=== PATIENT | female | born 1935 | race Caucasian/White ===

== ENCOUNTER → 2019-06-29 | Outpatient (CLI) | payer MEDICARE, OTHER ==
[~2019-06-29] MED LIST: ASPIR 8181 MG PO; CLONAZEPAM 0.50.5 M1 PO; DETROL LA2 MG PO; FARXIGA10 MG PO; FOLIC ACID1 MG PO; GLYCOTROL CAPS1 EACH PO; IRON325 PO; JENTADUETO 2.51 EAC2 PO; LEVEMIR100 UNIT/1 SQ; LEVOTHYROXINE 0.1 MG PO; LIPITOR10 MG PO; LISINOPRIL10 MG PO; OSTERA TABLET1 EAC1 PO; PAXIL10 MG PO
== END ==
LOC: M.MRI 11:03
DX: E11.69 Type 2 diabetes mellitus with other specified complication (principal); E03.9 Hypothyroidism, unspecified; I10 Essential (primary) hypertension; M19.91 Primary osteoarthritis, unspecified site; F41.1 Generalized anxiety disorder; F32.1 Major depressive disorder, single episode, moderate; Z79.4 Long term (current) use of insulin; Z90.710 Acquired absence of both cervix and uterus; Z79.899 Other long term (current) drug therapy; Z79.82 Long term (current) use of aspirin

== ENCOUNTER 2019-11-28 10:07 | Inpatient (IN) | payer OTHER ==
[~2019-11-28] VITALS: Ht 162.6 cm; Wt 54.9 kg
[~2019-11-28 10:07] MED LIST changes: -LEVOTHYROXINE 0.1 MG PO; +SYNTHROID100 MC1 PO
[2019-11-28 10:10] VITALS: BP 154/66
[2019-11-28] MEDS ORDERED: LANTUS SUBQ (10:21)
[2019-11-28] MEDS ORDERED: INVOKANA300 MG PO (10:21)
[2019-11-28 10:29] LABS: ABSOLUTE BASOPHILS 0.1 thou/uL (0.0-0.2); ABSOLUTE EOSINOPHILS 0.1 thou/uL (0.0-0.7); ABSOLUTE LYMPHOCYTES 1.6 thou/uL (0.8-5.3); ABSOLUTE MONOCYTES 0.5 thou/uL (0.0-1.2); EOSINOPHILS 1.9 %; HEMATOCRIT 37.7 % (37.0-47.0); HEMOGLOBIN 12.7 gm/dL (12.0-15.0); LYMPHOCYTES 25.2 %; MCH 30.7 pg (26.0-34.0); MCHC 33.7 g/dL (28.0-37.0); MCV 91.3 fL (80.0-100.0); MONOCYTES 8.1 %; MPV 8.3 fl. (7.2-11.1); NUCLEATED RBCS 0 /100WBC; PLATELET COUNT* 204 thou/uL (150-400); POLYS 63.8 %; RBC 4.13 mil/uL (4.20-5.00); RDW-CV 13.5 % (10.5-14.5); WBC 6.3 thou/uL (4.0-11.0)
[2019-11-28 10:39] LABS: APTT 24.3 Seconds (25.0-31.3); CALCIUM 9.1 mg/dL (8.5-10.1); POTASSIUM 4.3 mmol/L (3.5-5.1); PROTIME 10.2 Seconds (9.20-11.50)
[2019-11-28 10:43] LABS: ALBUMIN 3.4 g/dL (3.4-5.0); TOTAL BILIRUBIN 0.2 mg/dL (<0.1-1.0); TOTAL PROTEIN 6.5 g/dL (6.4-8.2)
[2019-11-28 12:16] LABS: URINE BILIRUBIN NEGATIVE (Negative); URINE BLOOD NEGATIVE (Negative); URINE CLARITY CLEAR; URINE COLOR YELLOW; URINE GLUCOSE-RANDOM 3+ (Negative); URINE KETONES NEGATIVE (Negative); URINE LEUKOCYTES-REFLEX NEGATIVE (Negative); URINE NITRITE-REFLEX NEGATIVE (Negative); URINE PROTEIN NEGATIVE (Negative); URINE UROBILINOGEN 0.2 E.U./dl (0.2-1.0)
[2019-11-28 12:40] VITALS: BP 144/54
[2019-11-28 13:01] VITALS: BP 158/65
[2019-11-28 13:17] VITALS: BP 158/65
--- NOTE | 2019-11-28 14:40 | EKG ---
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[place] : 1935 Requested By: Alistair Granados Order Number: [id number] MD: Ralph Maldonado Measurements Intervals [place] Rate: 68 P: 46 [place]: 139 QRS: -29 QRSD: 94 T: 12 QT: 398 QTc: 424 Interpretive Statements Sinus rhythm Probable left atrial enlargement Borderline left axis deviation RSR' in V1 or V2, probably normal variant Compared to ECG 04/07/2016 07:37:16 RSR' in V1 or V2 now present Electronically Signed On 11-28-2019 14:39:15 SUPERVISOR FILTRATION by Ralph Maldonado [email or web address] <ELECTRONICALLY SIGNED> By: Ralph Maldonado MD, FAC 11/28/19 1439 1028 1028 Ralph Maldonado MD, [facility] /EPI
[2019-11-28 18:32] VITALS: BP 146/59
[2019-11-28 20:14] VITALS: BP 120/63
[2019-11-29] VITALS (7 sets, daily range): BP systolic 92–133; BP diastolic 38–63
[2019-11-29 03:50] LABS: ABSOLUTE LYMPHOCYTES 0.7 thou/uL (0.8-5.3); ABSOLUTE MONOCYTES 0.7 thou/uL (0.0-1.2); ABSOLUTE NEUTROPHILS 7.4 thou/uL (1.6-8.1); BASOPHILS 0.3 %; EOSINOPHILS 0.1 %; HEMATOCRIT 28.8 % (37.0-47.0); MCH 31.2 pg (26.0-34.0); MCHC 33.8 g/dL (28.0-37.0); MCV 92.5 fL (80.0-100.0); MONOCYTES 7.7 %; MPV 8.5 fl. (7.2-11.1); NUCLEATED RBCS 0 /100WBC; PLATELET COUNT* 191 thou/uL (150-400); POLYS 83.9 %; RBC 3.12 mil/uL (4.20-5.00); RDW-CV 13.8 % (10.5-14.5); WBC 8.9 thou/uL (4.0-11.0)
[2019-11-29 03:52] LABS: HEMOGLOBIN 9.7 gm/dL (12.0-15.0)
[2019-11-29 03:57] LABS: CALCIUM 7.8 mg/dL (8.5-10.1); CREATININE 0.9 mg/dL (0.6-1.3); POTASSIUM 4.4 mmol/L (3.5-5.1)
[2019-11-29 21:40] LABS: URINE BLOOD 3+ (Negative); URINE CLARITY CLOUDY; URINE COLOR RED; URINE GLUCOSE-RANDOM 3+ (Negative); URINE KETONES 1+ (Negative); URINE LEUKOCYTES-REFLEX NEGATIVE (Negative); URINE PROTEIN 2+ (Negative); URINE SPECIFIC GRAVITY 1.015 (1.005-1.030); URINE UROBILINOGEN 0.2 E.U./dl (0.2-1.0)
[2019-11-29 21:44] LABS: ICTOTEST (BILI CONFIRMATORY) Negative (Negative); URINE BILIRUBIN 1+ (Negative); URINE NITRITE-REFLEX POSITIVE (Negative)
[2019-11-29 21:49] LABS: URINE RBC >20 Many /HPF (0-2)
[2019-11-29 21:50] LABS: URINE WBC-REFLEX 0-5 Rare /HPF (0-5); YEAST-REFLEX Present (None Seen)
[2019-11-29 21:51] LABS: BACTERIA-REFLEX 1-9 Few /HPF (None Seen); CASTS None Seen /LPF (None Seen); CRYSTALS None Seen /LPF (None Seen); MUCUS None Seen strn/LPF (None Seen); SQUAMOUS 0-3 Few /LPF (0-3)
[2019-11-30] VITALS: BP 109/51; BP 88/46
[2019-11-30 04:00] VITALS: BP 122/60
[2019-11-30 04:00] LABS: ABSOLUTE LYMPHOCYTES 0.9 thou/uL (0.8-5.3); ABSOLUTE MONOCYTES 1.1 thou/uL (0.0-1.2); BASOPHILS 0.4 %; EOSINOPHILS 0.2 %; HEMATOCRIT 23.2 % (37.0-47.0); HEMOGLOBIN 7.8 gm/dL (12.0-15.0); LYMPHOCYTES 9.5 %; MCH 31.1 pg (26.0-34.0); MCHC 33.5 g/dL (28.0-37.0); MCV 92.6 fL (80.0-100.0); MONOCYTES 12.2 %; MPV 8.6 fl. (7.2-11.1); NUCLEATED RBCS 0 /100WBC; PLATELET COUNT* 174 thou/uL (150-400); POLYS 77.7 %; RDW-CV 14.2 % (10.5-14.5); WBC 8.9 thou/uL (4.0-11.0)
[2019-11-30 04:10] LABS: CALCIUM 7.7 mg/dL (8.5-10.1); CREATININE 1.2 mg/dL (0.6-1.3); POTASSIUM 4.1 mmol/L (3.5-5.1)
[2019-11-30 07:15] VITALS: BP 137/68
[2019-11-30] MEDS ORDERED: XARELTO10 M1 PO ×2 (09:37)
[2019-11-30] MEDS ORDERED: OXYCODONE HCL 55 MG PO ×2 (09:37)
[2019-11-30] MEDS ORDERED: CEFUROXIME500 MG PO ×2 (09:38)
[2019-11-30] MEDS ORDERED: LEVO-T100 MCG PO ×2 (13:45)
[2019-11-30 14:23] VITALS: BP 137/68
[2019-11-30 16:38] VITALS: BP 131/78
--- NOTE | 2019-12-02 11:28 | OP ---
[address] [address] OPERATIVE REPORT Name: APO SIMMONS Room: [address] IN M.R.#: [id number] Admission: 11/28/19 Attend Phys: Kody Ramires MD Discharge: 11/30/19 Date of : 35 Report #: [id number] THIS REPORT FOR: //name// CC: Kody Alexis DATE OF SERVICE: 11/28/2019 PRIMARY PHYSICIAN: Dr. Ralph Alexis. PREOPERATIVE DIAGNOSIS: Complex right hip fracture, intertrochanteric with subtrochanteric extension. POSTOPERATIVE DIAGNOSIS: Complex right hip fracture, intertrochanteric with subtrochanteric extension. OPERATIONS PERFORMED: 1. Open reduction and internal fixation of the right hip of a complex fracture with a long cephalomedullary johana. 2. Physician-directed fluoroscopy under [address] Pedro. SURGEON: Ranjan Pedro D.O. BOARDING MACHINE OPERATOR: Dr. Chris De Los Santos. SECOND SINGLE NEEDLE TUFTING MACHINE OPERATOR: Wesly Paz D.O. ANESTHESIA: General. GROSS PATHOLOGY: This was a complex right hip fracture because it was comminuted intertrochanteric with subtrochanteric extension which required a long cephalomedullary johana and Lorenzo gamma 3 johana. IMPLANTS UTILIZED: Edna long cephalomedullary johana 11 x 380 mm in length. DESCRIPTION OF PROCEDURE: The patient was brought to the operating room where general anesthetic was administered. Preoperative antibiotics were given. The patient was placed on the operating table with the right leg in traction. The fracture is reduced acceptable position, further reduction was done intraoperatively. Hibiclens scrub and a ChloraPrep, prep were done to the right hip and leg. The patient was draped in a sterile manner. An incision was then made approximately 2.5 inches in length at the greater trochanter. It was carried down through the skin and subcuticular material by sharp dissection. By sharp and blunt dissection, the tip of the greater trochanter was identified. The starting awl was utilized to make a hole in this region. The guidewire was then passed down the femur. It was viewed with the C-arm [place] [address] OPERATIVE REPORT Name: PAO SIMMONS Room: [address] IN [facility]#: [id number] Admission: 11/28/19 Attend Phys: Kody Ramires MD Discharge: 11/30/19 Date of : 35 Report #: [id number]. Measurements were taken at the greater trochanter for the johana length. The femur was then reamed increasing successfully 1 cm at a time to 13 mm and the femur was then reamed to the lesser trochanter to 15.5 mm. The long gamma johana was then inserted over the guidewire to the appropriate depth. Incision was made on the lateral aspect of the hip where the guidewire was inserted in the femoral neck and head. Measurements were taken. The reamer was used to ream over the guidewire. The lag screw was then advanced over the guidewire to the appropriate depth. The proximal locking screw was then tightened down to the lag screw. The guidewire was removed. The inserting device was removed. The C-arm was utilized again under my direction, which revealed the fracture site maintained in good position and implants in good position. Attention was turned to the distal portion of the johana through small incisions using free hand type technique. Two screws were passed across the distal portion of the femur johana in a perfect nikolski technique. Again, they were viewed with the C-arm and noted to be in acceptable position of the transverse screws distally as well as the femur was then again reviewed with implants in good position, fracture maintained in acceptable position. The deep tissues were closed with 0 Vicryl suture, subcutaneous with 2-0 Vicryl, and aida on the skin. Estimated blood loss approximately 150 mL. The incision site areas are anesthetized with Marcaine 0.5% plain, approximately 30 mL. Sterile dressing was applied. The patient was transferred to the recovery room in good condition. <ELECTRONICALLY SIGNED> By: Lacho Lomas DO 12/02/19 1128 1640 1856Ranjan Pedro DO /nt
== END 2019-11-30 18:41 | DRG 481 ==
LOC: M.ERS 10:07 → M.TBA-ER 11:36 → M.ORTHSURG 11:36
PROVIDERS: Family Medicine; ADMIT Internal Medicine
PROC: 0QS606Z Reposition Right Upper Femur with Intramedullary Internal Fixation Device, Open Approach (ICD-10-PCS; principal; 2019-11-28)
DX: M80.851A Other osteoporosis with current pathological fracture, right femur, initial encounter for fracture (principal); D62 Acute posthemorrhagic anemia; N39.0 Urinary tract infection, site not specified; E11.9 Type 2 diabetes mellitus without complications; M19.90 Unspecified osteoarthritis, unspecified site; Z91.81 History of falling; Z79.899 Other long term (current) drug therapy; Z79.82 Long term (current) use of aspirin; Z79.4 Long term (current) use of insulin

== ENCOUNTER 2019-11-30 16:58 | Inpatient (IN) | payer OTHER ==
[~2019-11-30] VITALS: Ht 162.6 cm; Wt 69.2 kg
--- NOTE | ~2019-11-30 | EKG ---
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
--- NOTE | ~2019-11-30 | EKG ---
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
[~2019-11-30 16:58] MED LIST changes: +CEFUROXIME500 MG PO; +INVOKANA300 MG PO; +LANTUS SUBQ; +LEVO-T100 MCG PO; +OXYCODONE HCL 55 MG PO; +XARELTO10 M1 PO
[2019-11-30 18:55] VITALS: BP 152/76
[2019-11-30 20:05] VITALS: BP 155/65
[2019-12-01 03:53] LABS: HEMATOCRIT 21.9 % (37.0-47.0); HEMOGLOBIN 7.4 gm/dL (12.0-15.0); MCHC 33.6 g/dL (28.0-37.0); MCV 92.5 fL (80.0-100.0); MPV 8.3 fl. (7.2-11.1); RBC 2.37 mil/uL (4.20-5.00); RDW-CV 13.9 % (10.5-14.5); WBC 7.7 thou/uL (4.0-11.0)
[2019-12-01 04:04] LABS: POTASSIUM 4.1 mmol/L (3.5-5.1)
[2019-12-01 07:15] VITALS: BP 175/95
[2019-12-01 07:52] VITALS: BP 173/96
[2019-12-01 08:26] VITALS: BP 173/96
[2019-12-01 10:07] LABS: CHOLESTEROL 134 mg/dL (<200); HDL CHOLESTEROL 46 mg/dL (>40); LDL CHOLESTEROL 70 mg/dL (<100); TC:HDL 2.9 Ratio (Not establshd); TRIGLYCERIDE 94 mg/dL (<150); VLDL 19 mg/dL (<40)
[2019-12-01 10:08] LABS: SERUM ASSESSMENT Clear
== END 2019-12-01 09:16 | disposition short-term general hospital (02) | DRG 536 ==
LOC: M.REH 16:58
PROVIDERS: Registered Nurse; ADMIT Physical Medicine & Rehabilitation
DX: S72.141A Displaced intertrochanteric fracture of right femur, initial encounter for closed fracture (principal); I20.0 Unstable angina; W18.39XA Other fall on same level, initial encounter; E11.69 Type 2 diabetes mellitus with other specified complication; M19.90 Unspecified osteoarthritis, unspecified site; Y93.89 Activity, other specified; Y92.89 Other specified places as the place of occurrence of the external cause; Y99.8 Other external cause status

== ENCOUNTER 2019-12-01 08:45 | Inpatient (IN) | payer MEDICARE, OTHER ==
[~2019-12-01] VITALS: Ht 162.6 cm; Wt 60.4 kg
[2019-12-01] VITALS (15 sets, daily range): BP systolic 123–153; BP diastolic 58–105
--- NOTE | ~2019-12-01 | EKG ---
[place] [address] ELECTROCARDIOGRAM REPORT Name: PAO SIMMONS Room: [address] ADM IN [facility].#: [id number] Admission: 12/01/19 Attend Phys: Kody Ramires, Discharge: Date of : 35 Date of Service: 12/01/19 1314 Report #: [id number] THIS REPORT FOR: cc: Ralph Alexis MD, David L. MD Epiphany, Epiphany MD ~ THIS REPORT FOR: //name// 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 : 1935 Requested By: Ralph Maldonado Order Number: [id number] Reading MD: Measurements Intervals [place] Rate: 93 P: 36 [place]: 141 QRS: -31 QRSD: 79 T: 73 QT: 386 QTc: 481 Interpretive Statements Sinus rhythm Atrial premature complex Left axis deviation Anteroseptal infarct, age indeterminate Compared to ECG 12/01/2019 09:07:09 Atrial premature complex(es) now present Left-axis deviation now present Myocardial infarct finding now present Sinus tachycardia no longer present Ventricular premature complex(es) no longer present [email or web address] By: 13 13 Epiphany MD Veronica /IVONE
--- NOTE | ~2019-12-01 | EKG ---
[place] [address] ELECTROCARDIOGRAM REPORT Name: PAO SIMMONS Room: [address] ADM IN [facility].#: [id number] Admission: 12/01/19 Attend Phys: Kody Ramires, Discharge: Date of : 35 Date of Service: 12/02/19 0616 Report #: [id number] THIS REPORT FOR: cc: Ralph Alexis MD, David L. MD Epiphany, Epiphany MD ~ THIS REPORT FOR: //name// 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 : 1935 Requested By: Ralph Maldonado Order Number: [id number] Reading MD: Measurements Intervals [place] Rate: 96 P: 32 [place]: 136 QRS: -28 QRSD: 84 T: 124 QT: 369 QTc: 467 Interpretive Statements Sinus rhythm Probable left atrial enlargement Borderline left axis deviation Abnormal T, consider ischemia, lateral leads Compared to ECG 12/01/2019 13:14:14 T-wave abnormality now present Possible ischemia now present Atrial premature complex(es) no longer present Myocardial infarct finding no longer present [email or web address] By: 5 5 Epiphany MD Veronica /IVONE
[2019-12-01 15:28] LABS: ABSOLUTE LYMPHOCYTES 0.6 thou/uL (0.8-5.3); ABSOLUTE MONOCYTES 0.6 thou/uL (0.0-1.2); BASOPHILS 0.3 %; EOSINOPHILS 0.2 %; HEMATOCRIT 23.2 % (37.0-47.0); HEMOGLOBIN 7.8 gm/dL (12.0-15.0); LYMPHOCYTES 6.7 %; MCHC 33.4 g/dL (28.0-37.0); MCV 92.7 fL (80.0-100.0); MONOCYTES 6.9 %; MPV 8.8 fl. (7.2-11.1); NUCLEATED RBCS 0 /100WBC; PLATELET COUNT* 221 thou/uL (150-400); POLYS 85.9 %; RBC 2.51 mil/uL (4.20-5.00); RDW-CV 14.4 % (10.5-14.5); WBC 9.4 thou/uL (4.0-11.0)
[2019-12-01 15:32] LABS: CALCIUM 8.6 mg/dL (8.5-10.1); CREATININE 1.1 mg/dL (0.6-1.3)
--- NOTE | 2019-12-01 16:32 | CARD ---
[address] [address] CARDIAC CATH REPORT Name: PAO SIMMONS Room: [address] IN .R.#: [id number] Admission: 12/01/19 Attend Phys: Kody Ramires MD Discharge: Date of : 35 Report #: [id number] THIS REPORT FOR: //name// cc: Ralph Alexis MD, David L. MD ~ THIS REPORT FOR: //name// APPROVED REPORT Study performed: 12/01/2019 09:35:36 Patient Details Patient Status: In-Patient Room #: The patient is a 84 year-old female Event Personnel Ranjan Fung Granite Polisher, Carla Camejo RN RN, Monster Hung TRAINING ENGINEER Monitor, Yara Askew RTR Scrub, Pee Ryan TRAINING ENGINEER Scrub, Ralph Maldonado Illusionist Procedures Performed Left heart catheterization, coronary angiography, left ventriculography and percutaneous coronary intervention to the proximal left anterior descending coronary artery. Indication Abnormal ECG, Non-STEMI (>0 to less than or equal to 6 hours), Chest pain Risk Factors Arterial Hypertension, Hypercholesterolemia, Diabetes Admission/Lab Medications/Medications given during procedure Glycoprotein IllbIlla Inhibitors, Heparin Unfract. Procedure Narrative The patient was brought urgently to the Cardiac Catheterization Laboratory and was prepped and draped in a sterile manner. The right wrist was infiltrated with 1% Lidocaine subcutaneous anesthesia. A Slender Glidesheath sheath was inserted into the right radial artery. Coronary angiography was performed using coronary diagnostic catheters. The right coronary system was accessed and visualized with a [place] 4.0 6fr catheter. The left coronary [place] [address] CARDIAC CATH REPORT Name: PAO SIMMONS Room: [address]#: [id number] Admission: 12/01/19 Attend Phys: Kody Ramires MD Discharge: Date of : 35 Report #: [id number] visualized with a [place] 4.0 6fr catheter. The left ventricle was accessed and visualized with a PC: Pig 6fr catheter. Left ventricular/Aortic Valve gradient assessed via catheter pullback. Left ventriculogram was performed in VILLANUEVA projection. Closure device was deployed with a 6 Fr Vasc-Band Reg 24cm. The patient tolerated the procedure well and there were no complications associated with the procedure. Intraoperative Conscious Sedation Sedation start time: 1223 Case end Time: 1240 Versed 1 mg Fluoro Time: 8.1 minutes Dose: DAP 64875 cGycm2 857 mGy Contrast Type and Amount: Omnipaque 265 ml Coronary Angiography The patient's coronary anatomy is right dominant. Diagnostic Cath Left Main The left main coronary artery is normal. LAD The left anterior descending coronary artery has a 99% stenosis proximally with associated thrombus. The mid and distal vessel appeared to be free of significant disease. PRASAD 2 flow noted. Diagonal 1 The first diagonal branch appears to be free of significant disease. Circumflex The circumflex coronary artery is normal. The circumflex terminates in a large obtuse marginal branch. OM1 A large branched first obtuse marginal branch is normal. Right Coronary The right coronary artery is minimally 10% plaquing in its proximal mid and distal portion. R PDA The right PDA appears significant disease. RPLV A large in branched right posterior lateral LV branch appears free of significant disease. Ramus A small intermedius ramus branch is free of significant disease. Left Ventriculography The left ventricle is normal in size with moderately decreased contractility. The left ventricular ejection fraction is estimated to be 35-40%. Left ventricular wall motion abnormalities are present. There is no mitral insufficiency. severe hypokinesis noted of the distal anterior [place] [address] CARDIAC CATH REPORT Name: PAO SIMMONS Room: [address] IN [facility]#: [id number] Admission: 12/01/19 Attend Phys: Kody Ramires MD Discharge: Date of : 35 Report #: [id number] Hemodynamics The aortic pressure is 119/59 mmHg with a mean of 74 mmHg. The left ventricular pressure is 125/20 mmHg with a mean of mmHg. The left ventricular end diastolic pressure is 23 mmHg. There was no gradient across the aortic valve upon pullback. Pullback from the left ventricle to the aorta revealed no gradient across the aortic valve. PCI Technique Lesion Anticoagulation was achieved with Heparin. bolus of iv aggrastat given Percutaneous coronary intervention was performed on the proximal left anterior descending artery segment. The lesion stenosis prior to intervention was 99% with PRASAD 2 flow. A 6FR XB 3.5 100CM Guide Catheter was used to engage the lm ostium. A IG: BMW 190cm Interventional Guidewire was used to cross the lesion. BALLOON DILATION A Balloon catheter Trek RX 2.5 X 8 was inserted and inflated up to 12.00atm for 15seconds. Repeat angiography revealed the following post-dilatation results: 50% stenosis. Additional Inflation: 14.00atm for 12seconds. STENT DEPLOYMENT A drug-eluting stent Osito RX Stent 2.74P18sy was inserted and inflated up to 9.00atm for 15seconds. Repeat angiography revealed the following post-stent deployment results: 0% stenosis. Additional Inflation: 11.00atm for 21seconds. Final angiography reveals 0 % stenosis with PRASAD 3 flow. Conclusion 1. 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 2. No other occlusive coronary artery disease noted at catheterization. 3. Moderate left ventricular systolic dysfunction with wall motion abnormalities as outlined above. 4. Elevated left ventricular end-diastolic pressure. 5. successful placement of a drug eluting stent in the proximal lad Recommendations Cardiac Rehabilitation Referral Aggressive Medical Therapy [place] [address] CARDIAC CATH REPORT Name: PAO SIMMONS Crystal Room: [address] IN [facility]#: [id number] Admission: 12/01/19 Attend Phys: Kody Ramires MD Discharge: Date of : 35 Report #: [id number] Clopidogrel Diagnostic Cath Approved by: Ranjan Fung MD Date/Time: 12/01/2019 15:33:45 <ELECTRONICALLY SIGNED> By: Ralph Maldonado MD, FACC 12/01/19 1631 1631 1631Dcolette Maldonado MD, FACC /INF
[2019-12-01 19:00] LABS: HEMATOCRIT 26.7 % (37.0-47.0)
[2019-12-02] VITALS (7 sets, daily range): BP systolic 99–131; BP diastolic 51–80
[2019-12-02 05:29] LABS: ABSOLUTE EOSINOPHILS 0.2 thou/uL (0.0-0.7); ABSOLUTE LYMPHOCYTES 0.8 thou/uL (0.8-5.3); ABSOLUTE MONOCYTES 0.7 thou/uL (0.0-1.2); ABSOLUTE NEUTROPHILS 5.6 thou/uL (1.6-8.1); BASOPHILS 0.5 %; EOSINOPHILS 2.1 %; HEMATOCRIT 24.7 % (37.0-47.0); HEMOGLOBIN 8.4 gm/dL (12.0-15.0); LYMPHOCYTES 11.1 %; MCHC 34.1 g/dL (28.0-37.0); MONOCYTES 9.7 %; MPV 7.7 fl. (7.2-11.1); NUCLEATED RBCS 0 /100WBC; PLATELET COUNT* 202 thou/uL (150-400); POLYS 76.6 %; RBC 2.71 mil/uL (4.20-5.00); RDW-CV 15.6 % (10.5-14.5); WBC 7.3 thou/uL (4.0-11.0)
[2019-12-02 05:53] LABS: CREATININE 0.9 mg/dL (0.6-1.3); POTASSIUM 4.1 mmol/L (3.5-5.1)
[2019-12-02 06:01] LABS: TROPONIN-I LEVEL 12.56 ng/mL (<0.06)
--- NOTE | 2019-12-02 15:16 | 2DMMODE ---
[place] [address] 2 D/M-MODE ECHOCARDIOGRAM Name: PAO SIMMONS Room: [address] IN .R.#: [id number] Admission: 12/01/19 Attend Phys: Kody Ramires, Discharge: Date of : 35 Date of Service: 12/02/19 1515 Report #: [id number] THIS REPORT FOR: cc: Ralph Alexis MD, David L. MD Blick, David R. MD [facility] ~ THIS REPORT FOR: //name// APPROVED REPORT Study performed: 12/02/2019 10:16:37 EXAM: Comprehensive 2D, Doppler, and color-flow Echocardiogram Patient Location: Bedside BSA: 1.79 HR: 102 bpm BP: 124/80 mmHg Other Information Study Quality: Fair Indications Elevated Troponin Chest Pain Myocardial Infarction 2D Dimensions IVSd: 13.87 (7-11mm) LVOT Diam: 23.89 (18-24mm) LVDd: 40.53 mm PWd: 11.06 (7-11mm) Ascending Ao: 32.01 (22-36mm) LVDs: 28.90 (25-40mm) Aortic Root: 23.71 mm Volumes Left Atrial Volume (Systole) LA ESV Index: 20.30 mL/m2 Aortic Valve AoV Peak Pepito.: 1.19 m/s AO Peak Gr.: 5.70 mmHg LVOT Max P.56 mmHg AO Mean Gr.: 3.26 mmHg LVOT Mean P.25 mmHg LVOT Max V: 0.80 m/s AO V2 VTI: 19.19 cm LVOT Mean V: 0.51 m/[place] [address] 2 D/M-MODE ECHOCARDIOGRAM Name: PAO SIMMONS Room: [address] IN .R.#: [id number] Admission: 12/01/19 Attend Phys: Kody Ramires, Discharge: Date of : 35 Date of Service: 12/02/19 1515 Report #: [id number] ELLE (VTI): 3.00 cm2 LVOT V1 VTI: 12.83 cm Mitral Valve E/A Ratio: 0.64 MV Decel. Time: 236.20 ms MV E Max Pepito.: 0.57 m/s MV PHT: 68.50 ms MVA (PHT): 3.21 cm2 TDI E/Lateral E': 8.14 E/Medial E': 8.14 Medial E' Pepito.: 0.07 m/s Lateral E' Pepito.: 0.07 m/s Pulmonary Valve PV Peak Pepito.: 1.11 m/s PV Peak Gr.: 4.92 mmHg Tricuspid Valve RAP Estimate: 5.00 mmHg TR Peak Gr.: 25.11 mmHg RVSP: 30.11 mmHg PA Pressure: 30.11 mmHg Left Ventricle The left ventricle is normal size. There is normal LV segmental wall motion. Mild concentric left ventricular hypertrophy. Left ventricular systolic function is normal. The left ventricular ejection fraction is within the normal range. LVEF is 55-60%. Grade I - abnormal relaxation pattern. Right Ventricle The right ventricle is normal size. The right ventricular systolic function is normal. Atria The left atrium size is normal. The right atrium size is normal. Aortic Valve The aortic valve is normal in structure. No aortic regurgitation is present. There is no aortic valvular stenosis. Mitral Valve The mitral valve is normal in structure. Trace mitral regurgitation. No evidence of mitral valve stenosis[place] [address] 2 D/M-MODE ECHOCARDIOGRAM Name: PAO SIMMONS Room: [address]#: [id number] Admission: 12/01/19 Attend Phys: Kody Ramires, Discharge: Date of : 35 Date of Service: 12/02/19 1515 Report #: [id number] The tricuspid valve is normal in structure. Trace tricuspid regurgitation. estimated pa pressure 30 mm Hg Pulmonic Valve The pulmonary valve is normal in structure. There is no pulmonic valvular regurgitation. Great Vessels The aortic root is normal in size. IVC is normal in size and collapses >50% with inspiration. Pericardium There is no pericardial effusion. <Conclusion> Mild concentric left ventricular hypertrophy. LVEF is 55-60%. <ELECTRONICALLY SIGNED> By: Ralph Maldonado MD, FACC 12/02/19 1515 1515 1515 Ralph Maldonado MD, FACC /INF
[2019-12-03] VITALS: BP 125/53
[2019-12-03 04:00] VITALS: BP 123/57
[2019-12-03 06:00] LABS: ABSOLUTE BASOPHILS 0.1 thou/uL (0.0-0.2); ABSOLUTE EOSINOPHILS 0.2 thou/uL (0.0-0.7); ABSOLUTE LYMPHOCYTES 1.3 thou/uL (0.8-5.3); ABSOLUTE MONOCYTES 0.7 thou/uL (0.0-1.2); ABSOLUTE NEUTROPHILS 3.5 thou/uL (1.6-8.1); EOSINOPHILS 3.2 %; HEMATOCRIT 23.9 % (37.0-47.0); HEMOGLOBIN 8.1 gm/dL (12.0-15.0); LYMPHOCYTES 22.5 %; MCH 30.7 pg (26.0-34.0); MCHC 34.1 g/dL (28.0-37.0); MONOCYTES 12.3 %; MPV 7.6 fl. (7.2-11.1); NUCLEATED RBCS 0 /100WBC; PLATELET COUNT* 226 thou/uL (150-400); RBC 2.65 mil/uL (4.20-5.00); RDW-CV 15.3 % (10.5-14.5); WBC 5.7 thou/uL (4.0-11.0)
[2019-12-03 06:07] LABS: CALCIUM 7.9 mg/dL (8.5-10.1); CREATININE 0.9 mg/dL (0.6-1.3); POTASSIUM 3.7 mmol/L (3.5-5.1)
[2019-12-03 08:00] VITALS: BP 115/50
[2019-12-03 12:00] VITALS: BP 123/72
[2019-12-03 16:00] VITALS: BP 127/61
[2019-12-03 19:30] VITALS: BP 126/66
[2019-12-04] VITALS: BP 148/70
[2019-12-04 04:00] VITALS: BP 131/64
[2019-12-04 05:40] LABS: HEMATOCRIT 24.7 % (37.0-47.0); HEMOGLOBIN 8.4 gm/dL (12.0-15.0); MCH 30.9 pg (26.0-34.0); MCHC 34.3 g/dL (28.0-37.0); MPV 7.3 fl. (7.2-11.1); RBC 2.74 mil/uL (4.20-5.00); RDW-CV 14.7 % (10.5-14.5)
[2019-12-04 05:55] LABS: CALCIUM 7.7 mg/dL (8.5-10.1); CREATININE 0.8 mg/dL (0.6-1.3); MAGNESIUM 1.7 mg/dL (1.8-2.4); POTASSIUM 3.4 mmol/L (3.5-5.1)
[2019-12-04 08:00] VITALS: BP 143/70
[2019-12-04 12:00] VITALS: BP 140/64
[2019-12-04 16:00] VITALS: BP 133/67
[2019-12-04 19:40] VITALS: BP 174/77
[2019-12-05 00:10] VITALS: BP 148/72
[2019-12-05 04:17] VITALS: BP 138/70
[2019-12-05 08:00] VITALS: BP 142/63
[2019-12-05] MEDS ORDERED: PLAVIX 75 MG TA75 M1 PO (09:04)
[2019-12-05] MEDS ORDERED: ASPIR 8181 MG PO (09:04)
[2019-12-05] MEDS ORDERED: TRAMADOL 50 MG50 MG PO (09:04)
[2019-12-05] MEDS ORDERED: LIDOPATCH1 EACH TOP (09:04)
[2019-12-05] MEDS ORDERED: HUMALOG100 UNIT/1 SUBQ (09:04)
[2019-12-05] MEDS ORDERED: PRINIVIL5 MG PO (09:04)
[2019-12-05] MEDS ORDERED: CEFUROXIME500 MG PO (09:04)
[2019-12-05] MEDS ORDERED: LANTUS SUBQ (09:04)
[2019-12-05] MEDS ORDERED: CARVEDILOL3.125 MG PO (09:04)
[2019-12-05] MEDS ORDERED: LIPITOR 40 MG T40 M1 PO (09:04)
[2019-12-05 11:41] VITALS: BP 139/72
[2019-12-05 16:00] VITALS: BP 139/69
[2019-12-05 20:00] VITALS: BP 174/71
[2019-12-06 07:32] VITALS: BP 141/66
[2019-12-06 13:01] VITALS: BP 124/80
[2019-12-06 16:00] VITALS: BP 122/55
[2019-12-06] MEDS ORDERED: OXYCODONE HCL 55 MG PO (16:30)
== END 2019-12-06 17:41 | DRG 246 ==
LOC: M.2W 08:45 → M.3W 12-05 12:40
PROVIDERS: Internal Medicine; Internal Medicine Cardiovascular Disease; Registered Nurse; ADMIT Internal Medicine
PROC: 4A023N7 Measurement of Cardiac Sampling and Pressure, Left Heart, Percutaneous Approach (ICD-10-PCS; principal; 2019-12-01)
PROC: 30233N0 Transfusion of Autologous Red Blood Cells into Peripheral Vein, Percutaneous Approach (ICD-10-PCS; principal; 2019-12-01)
PROC: 027034Z Dilation of Coronary Artery, One Artery with Drug-eluting Intraluminal Device, Percutaneous Approach (ICD-10-PCS; principal; 2019-12-01)
PROC: B2151ZZ Fluoroscopy of Left Heart using Low Osmolar Contrast (ICD-10-PCS; principal; 2019-12-01)
PROC: B2111ZZ Fluoroscopy of Multiple Coronary Arteries using Low Osmolar Contrast (ICD-10-PCS; principal; 2019-12-01)
DX: I21.4 Non-ST elevation (NSTEMI) myocardial infarction (principal); I50.31 Acute diastolic (congestive) heart failure; D62 Acute posthemorrhagic anemia; E11.9 Type 2 diabetes mellitus without complications; M19.90 Unspecified osteoarthritis, unspecified site; I25.5 Ischemic cardiomyopathy; E78.5 Hyperlipidemia, unspecified; I11.0 Hypertensive heart disease with heart failure; E78.00 Pure hypercholesterolemia, unspecified; Z79.2 Long term (current) use of antibiotics; Z79.01 Long term (current) use of anticoagulants; Z79.82 Long term (current) use of aspirin; Z79.4 Long term (current) use of insulin; Z79.899 Other long term (current) drug therapy; Z91.81 History of falling; Z82.49 Family history of ischemic heart disease and other diseases of the circulatory system; I25.10 Atherosclerotic heart disease of native coronary artery without angina pectoris

== ENCOUNTER 2019-12-06 17:24 | Inpatient (IN) | payer OTHER ==
[~2019-12-06] VITALS: Ht 162.6 cm; Wt 59.4 kg
[~2019-12-06 17:24] MED LIST changes: +CARVEDILOL3.125 MG PO; +HUMALOG100 UNIT/1 SUBQ; +LIDOPATCH1 EACH TOP; +LIPITOR 40 MG T40 M1 PO; +PLAVIX 75 MG TA75 M1 PO; +PRINIVIL5 MG PO; +TRAMADOL 50 MG50 MG PO
[2019-12-06 18:03] VITALS: BP 138/69
[2019-12-06 18:10] VITALS: BP 138/69
--- NOTE | 2019-12-06 18:16 | NUR ---
PT RESTS IN BED AND IS ALERT AND ORIENTATED TO ROOM AND CONTROLS. GANDSON IN ROOM WITH PT.PT HAS BEEN ASSISTED TO BSC AND VOIDS WELL.PT IS 25%WEIGHT BEARING TO RT. LEG, DRESSINGS TO RT. LEG INTACT.PT EATING SUPPER WITH HOB UP.
[2019-12-06 19:30] VITALS: BP 139/63
--- NOTE | 2019-12-07 04:45 | NUR ---
ASSUMED PT CARE AT 1930. ADMISSION PAPERWORK AND DATABASES COMPLETED. PT ALERT AND ORIENTED X4, POLITE AND COOPERATIVE WITH CARES. DRESSINGS TO RIGHT HIP AND LEG C/D/I AND OCCLUSIVE. PT IS 25% WEIGHT BEARING TO RIGHT LEG. PT UP TO COMMODE TWICE THIS SHIFT TO VOID WITH ASSIST OF TWO, GAIT BELT AND WALKER. NO STOOL THIS SHIFT. TRAMADOL TWICE THIS SHIFT FOR RIGHT LEG PAIN. PT GRANDAUGHTER IN ROOM OVERNIGHT. CALL LIGHT IN REACH. BED ALARM ON FOR SAFETY. HOURLY ROUNDING IN PROGRESS, WILL CONTINUE TO MONITOR.
[2019-12-07 05:21] LABS: HEMATOCRIT 27.7 % (37.0-47.0); HEMOGLOBIN 9.3 gm/dL (12.0-15.0); MCH 31.3 pg (26.0-34.0); MCHC 33.7 g/dL (28.0-37.0); MCV 92.8 fL (80.0-100.0); MPV 7.4 fl. (7.2-11.1); RBC 2.98 mil/uL (4.20-5.00); RDW-CV 14.9 % (10.5-14.5); WBC 6.4 thou/uL (4.0-11.0)
[2019-12-07 05:53] LABS: CALCIUM 8.6 mg/dL (8.5-10.1); CREATININE 0.8 mg/dL (0.6-1.3); POTASSIUM 4.2 mmol/L (3.5-5.1)
[2019-12-07 08:08] VITALS: BP 139/63
--- NOTE | 2019-12-07 11:02 | NUR ---
Nutrition: Pt admitted to rehab with consult for new admit. Eating 100% of CHO controlled meals. Pt was sound asleep at visit. Spoke with RN who stated a nutritional shake may be useful anyway - RD will order Glucerna shake at lunch. BG 190, alb 3.4. Meds noted. Wt recorded as 266#, but is in error. Pt weighs 120-133# usually. Wt last week was 133# also. Appears at low nutrition risk. Will follow weekly.
--- NOTE | 2019-12-07 16:49 | NUR ---
pt has participated with therapies and calls for assist as needed. pt is 25% weight bearing and is reminded when transferrs to bed or bsc. pt voids well,no bm today.drank prune juice and will start miralax.pt is alert and orientated.prn for pain given with fair effect today.dressint to rt. hip remains dry and intact.
--- NOTE | 2019-12-07 16:58 | NUR ---
SW met with pt to complete initial assessment and to review team conference summary. Pt alert, oriented. Pt lives at home with her great grandson. SW discussed plan to reteam next Thursday. Pt in agreement with plan. SW discussed possible support if needed at dc and pt said that her son and dtr in law and granddtr would be able to assist pt if needed. SW to continue to follow to assist with safe dc planning.
[2019-12-07 19:45] VITALS: BP 146/67
--- NOTE | 2019-12-08 03:33 | NUR ---
ASSUMED CARE @ 1909-12/07-THU.AWAKE IN BED W/ HOB UP.GRAND DAUGHTER VISITING @ THIS TIME.BED ALARM PUT ON @ 1909.SEE PAIN MANAGEMENT @ 1931.ON HOURLY ROUNDS.
--- NOTE | 2019-12-08 05:29 | NUR ---
USED BSC X1 @ 9765 W/ 2 PERSON TO TRANSFER.VERBAL CUES GIVEN TO DO 25% WB RIGHT LE DURING TRANSFERS.SEE 2ND PAIN MANAGEMENT @ 5158.SLEEPING SINCE 1999. SLEPT GOOD ALL NIGHT.AWAKENED ONLY TO TURN.REFUSED HS SNACK.
[2019-12-08 08:00] VITALS: BP 130/48
--- NOTE | 2019-12-08 17:09 | NUR ---
ASSUMMED CARE OF PT AT 0730, PT ALERT, ORIENTED, TRANSFERS WITH MOD/MAX ASSIST OF 2, NEEDS CUEING ASSIST AND HELP TO ONLY WT BEAR 25% ON RIGHT LEG, C/O PAIN IN RIGHT LEG, MEDICATED PER ORDERS,LIDOCAINE PATCH APPLIED TO RIGHT THIGH, DRESSING INTACT TO RIGHT HIP, C/O NAUSEA AND HAD SMALL EMESIS THIS AM, PHYSICIAN NOTIFIED, ORDER FOR ZOFRAN OBTAINED THIS PM AND GIVEN, PT HAD SMALL BM THIS SHIFT BUT FEELS CONSTIPATED, TOOK ALL BOWEL MEDS, SUPP GIVEN THIS PM, AWAITING RESULTS, TAKING FLUIDS, APETITE DECREASED, PARTICIPATED IN ALL THERAPIES, HOURLY ROUNDING COMPLETED, ASSESSMENT COMPLETE, WILL CONTINUE TO MONITOR.
[2019-12-08 19:30] VITALS: BP 125/55
--- NOTE | 2019-12-09 00:18 | NUR ---
ASSUMED CARE @ 1917-12/08-.APPEARS SLEEPING ALREADY W/ HOB UP.BED ALARM ALREADY ON @ 1917.TRANSFERS W/ 2 PERSONS.25% WB RIGHT LE OBSERVED BUT NEEDS VERBAL CUES.UPPER & MIDDLE INCISIONS-BOTH DRSGS CHANGED @ 2139.SEE FIRST PAIN MANAGEMENT @ 2200.NEEDS ASIST HOLDING RIGHT LE DURING TRANSFERS INTO & OUT OF BED.RIGHT LE UP ON A PILLOW.WEARS PULL UPS.ON HOURLY ROUNDS.
--- NOTE | 2019-12-09 05:46 | NUR ---
SLEEPING SINCE 1917.AWAKE 2X TO USE BSC X2.HAD LARGE BM W/ VOID @ 2150-AFTER SUP GIVEN BY DAY RN.REFUSED HS SNACK.SLEPT CONTINOUSLY DURING NIGHT.AWAKENED BRIEFLY TO TURN.REFUSED HS SNACK.NO NAUSEA NOR EMESIS DURING NIGHT.
[2019-12-09 07:38] VITALS: BP 139/61
--- NOTE | 2019-12-09 14:31 | NUR ---
Nutritioin: Consult recevied to see pt about her poor appetite. Pt and family stated that she just has no appetite. She does not like Glucerna shakes. Albumin 3.4. Pt agreed to Jello and Pudding with meals to help encourage po intake - RD ordered this. We also spoke about CHO controlled diet and heart healthy diet. Discussed plate method and low Na at length. Pt's son is on board to help pt with grocery shopping and get her menu together at home. Will continue to follow pt on Rehab unit. Hopeful for better po intake. Mild risk at this time.
--- NOTE | 2019-12-09 18:38 | NUR ---
ALERT AND ORIENTED X4. UP WITH 2 ASSIST, GAIT BELT AND WALKER. REMAINS 25% WEIGHTBEARING TO RIGHT LOWER EXTREMITY. PO PAIN MEDICATION GIVEN WITH WITH SOME RELIEF OF RIGHT HIP PAIN . NO C/O NAUSEA OR VOMITING. DRESSINGS DRY AND INTACT OVER RIGHT HIP INCISIONS. FALL PRECAUTIONS IN PLACE WITH BED AND CHAIR ALARM ON. CALL LIGHT WITHIN REACH.
[2019-12-09 20:00] VITALS: BP 133/60
--- NOTE | 2019-12-10 05:29 | NUR ---
ASSUMED CARES AT 1920. ALERT AND ORIENTED. PLEASANT. C/O RIGHT LEG PAIN. PAIN MEDS GIVEN. 25% WT BEARING RLE. MAX ASSIST X 2 PERSON. GAIT BELT AND WALKER UP TO BS. NEEDS MUCH CUEING WHEN TRANSFERRING. PULLUPS. SLEPT MOST OF THE NIGHT. CALL LIGHT IN REACH AND BED ALARM ON.
[2019-12-10 08:00] VITALS: BP 143/65
--- NOTE | 2019-12-10 18:16 | NUR ---
AM ASSESSMENT AND VITAL SIGNS COMPLETED DOCUMENTED. PT PARTICIPATED WITH ALL THERAPIES BUT SHE CONTINUES TO PUSH BACKWARDS WITH TRANSFERS AND HAS DIFFICULTY FOLLOWING DIRECTIONS BECAUSE OF HER FEAR. PRN PAIN AND NAUSEA MEDICATIONS GIVEN WITH GOOD RESULTS. FALL PRECAUTIONS AND HOURLY ROUNDING CONTINUE.
[2019-12-10 20:00] VITALS: BP 117/57
--- NOTE | 2019-12-11 05:27 | NUR ---
ASSUMED PT CARE AT 1930. PT SLEEPING BUT AWAKENS EASILY WITH ASSESSMENT. PT POLITE AND COOPERATIVE WITH CARES. PT DENIED PAIN, HAVING HAD PAIN MEDICATION JUST PRIOR TO SHIFT CHANGE. 25% WT BEARING TO RLE. MAX ASSIST X 2 PERSONS. GAIT BELT AND WALKER UP TO BSC. PT NEEDS CUEING AND IS TENATIVE WITH TRANSFERS. WEARS PULLUPS. SLEPT WELL OVERNIGHT. CALL LIGHT AND FREQUENTLY USED ITEMS IN REACH, BED ALARM ON FOR SAFETY. HOURLY ROUNDING IN PROGRESS.
[2019-12-11 08:00] VITALS: BP 145/61
[2019-12-11 19:30] VITALS: BP 129/57
[2019-12-12 04:22] LABS: ABSOLUTE EOSINOPHILS 0.1 thou/uL (0.0-0.7); ABSOLUTE MONOCYTES 0.9 thou/uL (0.0-1.2); ABSOLUTE NEUTROPHILS 6.6 thou/uL (1.6-8.1); BASOPHILS 0.5 %; EOSINOPHILS 1.2 %; HEMATOCRIT 24.3 % (37.0-47.0); HEMOGLOBIN 8.2 gm/dL (12.0-15.0); LYMPHOCYTES 11.5 %; MCH 31.3 pg (26.0-34.0); MCHC 33.6 g/dL (28.0-37.0); MCV 93.2 fL (80.0-100.0); MONOCYTES 10.4 %; MPV 7.3 fl. (7.2-11.1); NUCLEATED RBCS 0 /100WBC; PLATELET COUNT* 387 thou/uL (150-400); POLYS 76.4 %; RBC 2.61 mil/uL (4.20-5.00); RDW-CV 17.1 % (10.5-14.5); WBC 8.7 thou/uL (4.0-11.0)
[2019-12-12 04:40] LABS: CALCIUM 8.3 mg/dL (8.5-10.1); CREATININE 0.8 mg/dL (0.6-1.3)
--- NOTE | 2019-12-12 06:03 | NUR ---
ASSUMED PT CARE AT 1930. PT AWAKE, SITTING UP IN RECLINER VISITING WITH FAMILY. PT TRANSFERS TO BED WITH ASSIST OF TWO, GAITBELT AND WALKER. PT IS 25% WT BEARING TO RLE. UP TO BSC WITH MAX ASSIST OF TWO TO VOID. NO STOOL THIS SHIFT. PT NEEDS CUEING AND IS TENTATIVE WITH TRANSFERS. WEARS PULLUPS. SLEPT WELL OVERNIGHT. CALL LIGHT AND FREQUENTLY USED ITEMS IN REACH, BED ALARM ON FOR SAFETY. HOURLY ROUNDING IN PROGRESS.
[2019-12-12 07:53] VITALS: BP 141/67
--- NOTE | 2019-12-12 16:13 | NUR ---
ASSUMED CARE AT 0730. ALERT ORIENTED PLEASANT COOPERATIVE. 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 25% WEIGHT BEARING RT. LOWER EXTREMITY. WALKER G BELT AND CUES NEEDED FOR SIT TO STAND FOR W/C TRANSFER SHE IS ANXIOUS AND LEANS BACKWARDS. REASSUARANCE GIVEN TO RELAX AND WORK WITH STAFF. MEDICATED WITH PRN MED FOR RT. HIP PAIN BEFORE P.T. TAKES MEDS WITHOUT DIFFICULTY. FEEDS SELF APPETITE FAIR TO GOOD.
[2019-12-12 19:00] VITALS: BP 132/45
--- NOTE | 2019-12-13 05:25 | NUR ---
ASSUMED CARES AT 1920. ALERT AND ORIENTED. PLEASANT. RIGHT HIP FX. 25% WT BEARING RLE. UP WITH 1-2 PERSON. GAIT BELT AND WALKER. UP TO BSC. NEEDS MUCH CUEING. PAIN MEDS GIVEN NEEDED FOR RLE PAIN. SLEPT MOST OF THE NIGHT. CALL LIGHT IN REACH AND BED ALARM ON.
[2019-12-13 08:15] VITALS: BP 131/51
--- NOTE | 2019-12-13 14:08 | NUR ---
ASSUMED CARE AT 0730. ALERT AND ORIENTED PLEASANT COOPERATIVE. HX OF VT AND A RT. HIP FX. 25% WBRLE. TRANSFERS WITH 2 FOR SAFETY BUT MUCH BETTER THAN YESTERDAY. NOT LEANING BACKWARDS WHEN STANDING FROM W/C AND TOILET TODAY NEEDS VERBAL CUEING AND REASSURANCE. TAKES MEDS WITHOUT DIFFICULTY. APPETITE GOOD FEEDS SELF. DRESSINGS DRY AND INTACT RT. HIP. USES CALL LIGHT APPROPRIATELY. MEDICATED WITH 1 PRN MED AFTER LUNCH BEFORE AFTERNOON P.T.
[2019-12-13 20:00] VITALS: BP 137/57
--- NOTE | 2019-12-14 01:58 | NUR ---
ASSUMED CARE @ 1939-12/13-.SITS ON RECLINER W/ GRAND DAUGHTER & her family visiting @ THIS TIME.LE'S UP.CHAIR ALARM ALREADY ON @ 1939.TRANSFER OF ONE PERSON NOW W/ GB & WALKER.VERBAL CUES GIVEN TO DO 25% WB RIGHT LE DURING TRANSFERS.WEARS PULL UPS.C/O UNABLE TO GO BACK TO SLEEP @ 0020.NO PAIN ALSO @ THIS TIME.PRN FLEXERIL 5 MG ORAL GIVEN @ 25-12/14-THU.APPEARS SLEEPING @ 0100.ON HOURLY ROUNDS.
--- NOTE | 2019-12-14 05:40 | NUR ---
SLEEPING SINCE 194.AWAKE @ 1999 TO GO TO BED W/ ASSIST.AWAKE @ 2300 & 0245 TO USE BSC X2 TO VOID.ABLE TO DO HYGIENE AFTER VOIDING.ASSIST W/ CLOTHING ADJUSTMENTS.REFUSED HS SNACK.
[2019-12-14 08:00] VITALS: BP 153/65
--- NOTE | 2019-12-14 16:30 | NUR ---
JEFFY and Dr Kulkarni met with pt to review team conference summary and plan for pt to remain on rehab unit at least another week with team to reassess pt length of stay during team conference next Thursday. SW to continue to follow to assist with safe dc planning.
--- NOTE | 2019-12-14 17:03 | NUR ---
pt has participated with therapies and ambulates with gaitbelt,walker and 25% wrifht bearing to rt. leg. pt to continue at 25% weight bearing and aida to be removed tomorrow. prn tylenol given for pain with good effect. pt is continent of b+b and goes to toilet per w/c or ambulates with walker.incisions to rt. hip dry and intact.pt alert and orientated.
[2019-12-14 19:15] VITALS: BP 139/59
--- NOTE | 2019-12-15 01:54 | NUR ---
ASSUMED CARE @ 1919-12/14-THU.AWAKE IN BED W/ HOB UP.RIGHT LE UP ON A PILLOW. BED ALARM PUT ON @ 1937.PRN AMBIEN 5 MG ORAL GIVEN @ 2014-PER PT'S REQUEST. WEARS PULL UPS.25% WB ON RIGHT LE OBSERVED DURING TRANSFERS.ON HOURLY ROUNDS. 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
--- NOTE | 2019-12-15 05:27 | NUR ---
SLEPT EARLY @ 2100 & SLEPT CONTINOUSLY ALL NIGHT.USED BSC X1.
[2019-12-15 08:30] VITALS: BP 166/71
--- NOTE | 2019-12-15 17:00 | NUR ---
PT HAS PARTICIPATED WITH THERAPIES AND CALLS FOR ASSIST NEEDED. PT NOW WBAT TO RT. LEG WITH WALKER AND MIN ASSIST OF 1. HUGO REMOVED FROM RT. HIP AND UPPER KNEE AREA WITHOUT PROBLEM THIS AM.INCISION WELL HEALED. PRN PL TYLENOL GIVEN FOR SORENESS BEFORE THERAPY WITH GOOD EFFECT. X-RAY OF RT. HIP DONE THIS AFTERNOON. PT IS ALERT AND ORIENTATED AND CONTINENT OF B+B.
[2019-12-15 20:00] VITALS: BP 143/90
[2019-12-16 04:29] LABS: CALCIUM 8.6 mg/dL (8.5-10.1); CREATININE 0.7 mg/dL (0.6-1.3); POTASSIUM 3.6 mmol/L (3.5-5.1)
--- NOTE | 2019-12-16 05:41 | NUR ---
ASSUMED PT CARE AT 1930. PT ALERT AND ORIENTED X4, POLITE AND COOPERATIVE WITH CARES. PRN AMBIEN AT BEDTIME PER PT REQUEST. PT SLEPT WELL OVERNIGHT. PT UP WITH GAIT BELT, WALKER AND ASSIST OF ONE TO BSC TO VOID. WEARS PULLUPS. PT IS WEIGHT BEARING TOLERATED ON RLE. SURGICAL INCISIONS TO RIGHT HIP AND THIGH HEALED. USES CALL LIGHT APPROPRIATELY. CALL LIGHT AND FREQUENTLY USED ITEMS IN REACH. HOURLY ROUNDING IN PROGRESS, WILL CONTINUE TO MONITOR.
[2019-12-16 08:17] VITALS: BP 163/77
--- NOTE | 2019-12-16 17:13 | NUR ---
ALERT AND ORIENTED X4. UP WITH 1 ASSIST, GAIT BELT AND WALKER. BLOOD SUGAR LOW THIS AM. DR NOTIFIED. INCISIONS HEALING RIGHT HIP WITHOUT S/S OF INFECTION. DENIED NEED FOR PAIN MEDICATION WHEN OFFERED. PATIENT USES CALL LIGHT WITHIN REACH. FALL PRECAUTIONS IN PLACE, BED ALARM AND CHAIR ALARM.
[2019-12-16 20:14] VITALS: BP 146/51
--- NOTE | 2019-12-17 02:39 | NUR ---
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
[2019-12-17 04:38] LABS: HEMOGLOBIN 8.9 gm/dL (12.0-15.0); MCH 30.9 pg (26.0-34.0); MCHC 33.1 g/dL (28.0-37.0); MCV 93.5 fL (80.0-100.0); MPV 6.8 fl. (7.2-11.1); RBC 2.89 mil/uL (4.20-5.00); RDW-CV 17.2 % (10.5-14.5); WBC 5.8 thou/uL (4.0-11.0)
--- NOTE | 2019-12-17 07:34 | NUR ---
SLEEPING SINCE 2199 & SLEPT GOOD ALL NIGHT.REFUSED HS SNACK.BRP X3.BM X2-ONE @ 0 & ONE @ 0642.TAKES SUGAR FREE ICED TEA W/ MEDS.
[2019-12-17 08:21] VITALS: BP 153/72
--- NOTE | 2019-12-17 18:01 | NUR ---
ALERT AND ORIENTED X4. UP WITH 1 ASSIST, GAIT BELT AND WALKER. WEIGHTBEARING TOLERATED TO LOWER EXTREMITIES. CONTINENT OF BOWEL AND BLADDER. DENIES NEED FOR PAIN MEDICATION. HAS 1+ PITTING EDEMA TO RIGHT LOWER EXTREMITY. GOOD STRONG PEDAL PULSES. RIGHT HIP INCISION HEALING AND OPEN TO AIR. USES CALL LIGHT WITHIN REACH. FALL PRECAUTIONS IN PLACE, BED ALARM AND CHAIR ALARM.
[2019-12-17 20:00] VITALS: BP 149/59
--- NOTE | 2019-12-18 05:30 | NUR ---
ASSUMED CARES AT 1920. ALERT AND ORIENTED. PLEASANT. DENIED ANY NEED FOR PAIN MEDS. AMBIEN GIVEN PER PT REQUEST. PT CONTINUES TO REFUSE ANY BEDTIME SNACK. MIN ASSIST WITH GAIT BELT AND WALKER. UP TO BR. SLEPT MOST OF THE NIGHT. CALL LIGHT IN REACH. BED ALARM ON.
[2019-12-18 08:00] VITALS: BP 158/74
--- NOTE | 2019-12-18 18:41 | NUR ---
ALERT AND ORIENTED X4. UP WITH 1 ASSIST, GAIT BELT AND WALKER. DENIES PAIN. RIGHT HIP INCISION HEALED AND OPEN TO AIR. CONTINENT OF BOWEL AND BLADDER TODAY. USES CALL LIGHT WITHIN REACH. FALL PRECAUTIONS IN PLACE, BED ALARM AND CHAIR ALARM USED.
[2019-12-18 19:30] VITALS: BP 150/60
--- NOTE | 2019-12-19 05:10 | NUR ---
ASSUMED CARES AT 1920. ALERT AND ORIENTED. PLEASANT. DENIED ANY NEED FOR PAIN MEDS. WBAT RLE. MIN ASSIST WITH GAIT BELT AND WALKER. UP TO BATHROOM. PT REFUSED ANY BEDTIME SNACK DESPITE EDUCATION. SLEPT WELL. CALL LIGHT IN REACH AND BED ALARM ON.
[2019-12-19 08:03] VITALS: BP 157/72
--- NOTE | 2019-12-19 17:22 | NUR ---
ALERT AND ORIENTED X4. UP WITH STAND BY ASSIST, GAIT BELT AND WALKER. DENIES NEED FOR PAIN MEDICATION. REFUSED PAIN PATCH. INCISION HEALED RIGHT HIP. HAS 1+ PITTING EDEMA TO RIGHT LOWER LEG. USES CALL LIGHT WHEN NEEDING ASSISTANCE. FALL PRECAUTIONS IN PLACE, BED ALARM AND CHAIR ALARM IN PLACE. CONTINENT OF BOWEL AND BLADDER.
[2019-12-19 20:00] VITALS: BP 158/66
--- NOTE | 2019-12-20 05:37 | NUR ---
ASSUMED CARES AT 1920. ALERT AND ORIENTED. PLEASANT. DENIED ANY PAIN. WBAT RLE. MIN ASSIST WITH GAIT BELT AND WALKER. UP TO BATHROOM. REFUSED HS SNACK. SLEPT MOST OF THE NIGHT. NO ISSUES. CALL LIGHT IN REACH AND BED ALARM ON.
[2019-12-20 08:00] VITALS: BP 152/74
--- NOTE | 2019-12-20 17:17 | NUR ---
ASSUMMED CARE OF PT AT 0730, PT ALERT AND ORIENTED, DENIES PAIN, TRANSFERS WITH SBA, GB WALKER, WBAT, AMBULATES TO BATHROOM TO VOID, TAKING FOOD AND FLUIDS WELL, FAMILY CONCERNED THAT [facility] INSULIN CHANGED TO AM FROM PM DOSING, EXPLAINED PHYSICIANS ORDER, FAMILY WANTED INSULIN HELD UNTIL DISCUSSED WITH PHYSICIAN, DISCUSSED WITH DR RIVERA, ORDERS OBTAINED, PT UP IN CHAIR MOST OF SHIFT, PARTICIPATED IN ALL THERAPIES, HOURLY ROUNDING COMPLETED, ASSESSMENT COMPLETE, WILL CONTINUE TO MONITOR.
[2019-12-20 20:18] VITALS: BP 158/63
--- NOTE | 2019-12-21 05:02 | NUR ---
ASSUMED PT CARE AT 1930. PT ALERT AND ORIENTED X4, POLITE AND COOPERATIVE WITH CARES. PT DENIES PAIN. WBAT TO RLE. REFUSED HS SNACK. UP WITH MIN ASSIST, GAIT BELT AND WALKER TO BATHROOM TO VOID. SLEPT MOST OF THE NIGHT. STOOL X1 THIS SHIFT. USES CALL LIGHT APPROPRIATELY. BED ALARM ON FOR SAFETY. HOURLY ROUNDING IN PROGRESS, WILL CONTINUE TO MONITOR.
[2019-12-21 08:34] VITALS: BP 154/81
--- NOTE | 2019-12-21 17:00 | NUR ---
PT.UP IN CHAIR. NURSING AND CM IN ROOM AT SAME TIME. DISCUSSED TEAM CONFERENCE RECOMMENDATION OF DISCHARGE ON . SHE SAID SHE HAD WANTED TO GO HOME TOMORROW HER GRANDSON HAD A "THING" HE WANTED HER TO GO TO AT SCHOOL. EXPLAINED BY NURSE AND CM THAT IT WAS NOT MEJIA TO GO OUT TO AN EVENT SAME DAY SHE WENT HOME FROM HOSPITAL. ALSO SHE WOULD NOT QUALIFY FOR HH IF SHE WAS NOT HOME BOUND. SHE DID NOT FEEL SHE NEEDED HH. ENCOURAGED HER TO ACCEPT, WORK [employer] WOULD PAY FOR IT AND IT WOULD BE BENEFICIAL TO HER. CM WILL CALL [employer] TO DISCUSS HH AGENCIES FOR PT/OT AND DME. PT.WILL NEED FWW AND BATH BENCH. [facility] TO STAY WITH HER AT DISCHARGE FOR A WEEK.
--- NOTE | 2019-12-21 17:05 | NUR ---
pt has participated with therapies and calls for assist as needs. pt denies pain. pt ambulates with walker and sba with gaitbelt on. pt is continent of b+b and able to cleanse self and adjust clothing. pt remains alert and orientated.
[2019-12-21 19:15] VITALS: BP 139/66
--- NOTE | 2019-12-22 05:25 | NUR ---
ASSUMED PT CARE AT 1930. PT ALERT AND ORIENTED X4, POLITE AND COOPERATIVE WITH CARES. PT SITTING UP IN RECLINER AT SHIFT CHANGE. UP TO BATHROOM TO VOID WITH MIN ASSIST, GAIT BELT AND WALKER. DENIES PAIN. PT TOOK AMBIEN AT HS. SLEPT WELL OVERNIGHT. USES CALL LIGHT APPROPRIATELY. BED ALARM ON FOR SAFETY. HOURLY ROUNDING IN PROGRESS, WILL CONTINUE TO MONITOR.
[2019-12-22 08:05] VITALS: BP 154/67
--- NOTE | 2019-12-22 15:21 | NUR ---
PT HAS PARTICIPATED WITH THERAPIES AND IS MOD I IN ROOM THIS AFTERNOON. PT DENIES PAIN. PT IS ALERT AND ORIENTATED,CONTINENT OF B+B. PT PLANNING TO DISCHARGE TO HOME TOMORROW.PT AMBULATES WELL WITH WALKER AND HAS BEEN UP TO RECLINER.
[2019-12-22 20:18] VITALS: BP 148/60
[2019-12-22] MEDS ORDERED: TYLENOL325 MG PO (22:29)
[2019-12-22 22:30] VITALS: BP 138/69
--- NOTE | 2019-12-23 05:03 | NUR ---
ASSUMED CARES AT 1920. ALERT AND ORIENTED. PLEASANT. KAREN IN RM. WBAT RLE. UP TO BATHROOM. DENIED ANY PAIN. INCISIONS TO RLE HEALING. NO ISSUES OVERNIGHT. CALL LIGHT IN REACH.
[2019-12-23 07:00] VITALS: BP 158/71
[2019-12-23 08:19] VITALS: BP 158/71
--- NOTE | 2019-12-23 08:55 | NUR ---
FAXED DME PHYSICIANS ORDER FOR ROLLING WALKER AND UPDATED PROGRESS NOTES AND ALL THERAPY NOTES FROM 12/16/19 TO [employer], ATTENTION JANETTE ZALDIVAR AT [phone]; [phone] ON 12/22/19.
--- NOTE | 2019-12-23 11:13 | NUR ---
FAXED DME PHYSICIAN ORDER FOR ROLLING WALKER TO AMELIA AT [employer] [phone]; [phone]. SHE CONTACTED JANETTE ZALDIVAR AT [employer] WITH AUTH/CLAIM #[id number]. JAIME FROM [facility] TO DELIVER THE ROLLING WALKER.
--- NOTE | 2019-12-23 15:15 | NUR ---
Pt to dc home with family today. 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 JEFFY faxed final orders, dc summary, med list to Ashley Sharma with work comp earlier today. JEFFY called and left a voicemail to confirm HH set up and requested call back. Pt and pt family ready for pt to dc and opted for pt to return home and they plan to follow up with work comp if they do not hear from work comp or HH agency within the next day. No other dc needs.
--- NOTE | 2019-12-23 15:54 | NUR ---
ASSUMMED CARE OF PATIENT AT 0730, PT ALERT AND ORIENTED, MOD I IN ROOM WITH WALKER, VOIDS PER TOILET, TAKING FOOD AND FLUIDS WELL, DENIES PAIN, PARTICIPATED IN ALL THERAPIES, HOURLY ROUNDING COMPLETED, ORDERS OBTAINED FOR DISCHARGE, DISCUSSED HOME MEDICATIONS, WHEN TO CALL PHYSICIAN, FOLLOW UP APPTS, HOME HEALTH,SCRIPTS AND APPT CARDS GIVEN TO FAMILY. FAMILY AND PT STATE UNDERSTANDING OF INSTRUCTIONS, DISCHARGED TO MAIN ENTRANCE WITH BELONGINGS.
== END 2019-12-23 15:15 | disposition home health service (06) | DRG 542 ==
LOC: M.REH 17:24
PROVIDERS: Internal Medicine; ADMIT Physical Medicine & Rehabilitation
DX: M80.851A Other osteoporosis with current pathological fracture, right femur, initial encounter for fracture (principal); I21.9 Acute myocardial infarction, unspecified; I50.31 Acute diastolic (congestive) heart failure; D62 Acute posthemorrhagic anemia; I42.9 Cardiomyopathy, unspecified; E11.9 Type 2 diabetes mellitus without complications; I25.10 Atherosclerotic heart disease of native coronary artery without angina pectoris; Z95.5 Presence of coronary angioplasty implant and graft; I25.2 Old myocardial infarction

== ENCOUNTER → 2020-09-12 | Outpatient (CLI) | payer MEDICARE, OTHER ==
[~2020-09-12] MED LIST changes: +TYLENOL325 MG PO
== END ==
LOC: M.ULTRA 11:31
PROVIDERS: ATTEND Internal Medicine Cardiovascular Disease
DX: M79.89 Other specified soft tissue disorders (principal)

== ENCOUNTER → 2021-04-24 | Outpatient (CLI) | payer MEDICARE, OTHER | LOC: M.RAD 04-22 15:43 | PROVIDERS: ATTEND Internal Medicine | DX: Z12.31 Encounter for screening mammogram for malignant neoplasm of breast (principal); M85.88 Other specified disorders of bone density and structure, other site; Z78.0 Asymptomatic menopausal state ==

== ENCOUNTER → 2021-08-02 | Outpatient (CLI) | payer MEDICARE, OTHER | LOC: M.WC 08:59 | PROVIDERS: ATTEND Family Medicine | DX: S81.802A Unspecified open wound, left lower leg, initial encounter (principal); E11.36 Type 2 diabetes mellitus with diabetic cataract; H26.9 Unspecified cataract; E03.9 Hypothyroidism, unspecified; E78.5 Hyperlipidemia, unspecified; I10 Essential (primary) hypertension; M81.0 Age-related osteoporosis without current pathological fracture; F32.9 Major depressive disorder, single episode, unspecified; F41.9 Anxiety disorder, unspecified; Z90.710 Acquired absence of both cervix and uterus; Z95.5 Presence of coronary angioplasty implant and graft; Z86.73 Personal history of transient ischemic attack (TIA), and cerebral infarction without residual deficits; W22.8XXA Striking against or struck by other objects, initial encounter; Y93.89 Activity, other specified; Y92.89 Other specified places as the place of occurrence of the external cause; Y99.8 Other external cause status ==

== ENCOUNTER → 2021-08-09 | Outpatient (CLI) | payer MEDICARE, OTHER | LOC: M.WC 09:00 | PROVIDERS: ATTEND Family Medicine | DX: S81.802D Unspecified open wound, left lower leg, subsequent encounter (principal); E03.9 Hypothyroidism, unspecified; M81.0 Age-related osteoporosis without current pathological fracture; E11.39 Type 2 diabetes mellitus with other diabetic ophthalmic complication; H26.9 Unspecified cataract; F41.9 Anxiety disorder, unspecified; F32.9 Major depressive disorder, single episode, unspecified; Z86.73 Personal history of transient ischemic attack (TIA), and cerebral infarction without residual deficits; Z79.4 Long term (current) use of insulin; Z79.82 Long term (current) use of aspirin; Z79.899 Other long term (current) drug therapy; W22.8XXD Striking against or struck by other objects, subsequent encounter ==

== ENCOUNTER 2021-10-29 20:46 | Emergency (ER) | payer MEDICARE, OTHER ==
[~2021-10-29] VITALS: Ht 162.6 cm; Wt 52.6 kg
[~2021-10-29 20:46] MED LIST changes: +NORCO5 PO
[2021-10-29] MEDS ORDERED: DETROL1 MG PO (20:56)
[2021-10-29 22:48] LABS: URINE BILIRUBIN NEGATIVE (Negative); URINE BLOOD NEGATIVE (Negative); URINE CLARITY CLEAR; URINE COLOR YELLOW; URINE GLUCOSE-RANDOM 3+ (Negative); URINE KETONES NEGATIVE (Negative); URINE LEUKOCYTES-REFLEX NEGATIVE (Negative); URINE NITRITE-REFLEX NEGATIVE (Negative); URINE PROTEIN NEGATIVE (Negative)
[2021-10-30 00:22] VITALS: BP 166/87
== END 2021-10-30 00:22 | disposition home or self-care (01) ==
LOC: M.ERS 20:46
PROVIDERS: Emergency Medicine
DX: M54.18 Radiculopathy, sacral and sacrococcygeal region (principal); R10.2 Pelvic and perineal pain; M25.551 Pain in right hip; R11.0 Nausea; E11.9 Type 2 diabetes mellitus without complications; M19.90 Unspecified osteoarthritis, unspecified site; Z98.890 Other specified postprocedural states; Z79.899 Other long term (current) drug therapy; Z79.4 Long term (current) use of insulin; Z79.82 Long term (current) use of aspirin

== ENCOUNTER → 2021-10-31 | Outpatient (CLI) | payer MEDICARE, OTHER ==
[~2021-10-31] MED LIST changes: +DETROL1 MG PO
== END ==
LOC: M.RAD 15:31
PROVIDERS: ATTEND Internal Medicine
DX: M47.817 Spondylosis without myelopathy or radiculopathy, lumbosacral region (principal); M47.816 Spondylosis without myelopathy or radiculopathy, lumbar region; M25.78 Osteophyte, vertebrae

== ENCOUNTER → 2021-11-13 | Outpatient (CLI) | payer MEDICARE, OTHER | LOC: M.MRI 11:15 | PROVIDERS: ATTEND Internal Medicine | DX: M47.24 Other spondylosis with radiculopathy, thoracic region (principal); M41.86 Other forms of scoliosis, lumbar region; M47.26 Other spondylosis with radiculopathy, lumbar region; M47.25 Other spondylosis with radiculopathy, thoracolumbar region; M25.78 Osteophyte, vertebrae; M48.061 Spinal stenosis, lumbar region without neurogenic claudication; M48.05 Spinal stenosis, thoracolumbar region ==